=== PATIENT | male | born 1995 | race Caucasian/White ===

== ENCOUNTER 2018-11-30 12:09 | Emergency (ER) | payer BC ==
[2018-11-30] MEDS ORDERED: TRAMADOL HCL 50 MG TAB ONE (13:26)
[2018-11-30 13:32] LABS: Urine Blood NEGATIVE (NEG); Urine Glucose NEGATIVE (NEG); Urine Protein NEGATIVE (NEG); Urine Specific Gravity 1.005 (1.005-1.030); Urine pH 6.5 (5.0-7.0)
--- NOTE | 2018-11-30 14:13 | EDPHYS ---
Physician Documentation [facility] Name: Ishaan Carreon Age: 23 yrs Sex: Male : 1995 Arrival Date: 11/30/2018 Time: 12:13 Bed 20 Private MD: None, None ED Physician Benito Weiss HPI: 11/30 13:10 This 23 yrs old Male presents to ER via Ambulatory with complaints of kdr Testicular Swelling. 13:10 The patient presents with scrotal pain, of both sides, in the area of the epidydimis, kdr with swelling, without erythema. Onset: The symptoms/episode began/occurred 2 day(s) ago, He has had intermittent ongoing pain for several months and was previously diagnosed with a hydrocele but that pain has largely resolved until the last few days. Modifying factors: The symptoms are alleviated by remaining still, the symptoms are aggravated by movement, pressure, urinating. Associated signs and symptoms: The patient has no apparent associated signs or symptoms. Severity of symptoms: At their worst the symptoms were mild, moderate, just prior to arrival, in the emergency department the symptoms are unchanged. The patient has experienced similar episodes in the past, a few times. The patient has not recently seen a physician. Historical: - Allergies: 12:48 No Known Allergies; ph - Home Meds: 12:48 None [Active]; ph - PMHx: 12:48 None; ph - Immunization history:: Adult Immunizations unknown. - Social history:: Smoking status: Patient/guardian denies using tobacco. - Ebola Screening: : No symptoms or risks identified at this time. ROS: 13:10 Constitutional: Negative for fever, chills, and weight loss, Eyes: Negative for injury, kdr pain, redness, and discharge. 13:10 Abdomen/GI: Negative for abdominal pain, nausea, vomiting, and diarrhea, abdominal cramps, abdominal distension, black/tarry stool, rectal pain, rectal bleeding, bowel incontinence. 13:10 : Positive for urinary symptoms, burning with urination, testicular pain Exam: 13:10 Constitutional: This is a well developed, well nourished patient who is awake, alert, kdr and in no acute distress. Head/Face: Normocephalic, atraumatic. 13:10 Abdomen/GI: Inspection: abdomen appears normal, Bowel sounds: normal, Palpation: abdomen is soft and non-tender. 13:10 : CVA tenderness, is absent, Male external genitalia: Circumcision noted. swelling: scrotal, testicle, is noted in the right inguinal area, is noted in the left inguinal area, of the epididymis area, tenderness. Vital Signs: 12:48 BP 153 / 88; Pulse 69; Resp 18; Temp 97.8; Pulse Ox 100% on R/A; Weight 61.23 kg; ph Height 5 ft. 6 in. (167.64 cm); Pain 7/10; 14:37 BP 139 / 82; Pulse 71; Resp 14; Pulse Ox 100% ; bp 12:48 Body Mass Index 21.79 (61.23 kg, 167.64 cm) ph MDM: 13:10 Data reviewed: vital signs, nurses notes, lab test result(s), radiologic studies. kdr Counseling: I had a detailed discussion with the patient and/or guardian regarding: the historical points, exam findings, and any diagnostic results supporting the discharge/admit diagnosis, lab results, radiology results, the need for outpatient follow up. 14:12 Patient medically screened. kdr 11/30 13:09 Order name: Urine Culture kdr 11/30 13:27 Order name: Urine Dipstick--Ancillary (enter results); Complete Time: 14:09 eb 11/30 13:09 Order name: Urine Dipstick-Ancillary (obtain specimen); Complete Time: 13:54 kdr 11/30 13:09 Order name: US Scrotum Testicles kdr Administered Medications: 13:18 Drug: traMADol 100 mg Route: PO; bp 14:32 Follow up: Response: Anxiety decreased bp 14:15 Drug: Cipro 500 mg Route: PO; bp 14:36 Follow up: Response: Medication administered at discharge. bp Disposition: 11/30/18 14:12 Discharged to Home. Impression: Hydrocele, unspecified, Varicocele. - Condition is Stable. - Discharge Instructions: Varicocele, Hydrocele, Adult, Testicular Self-Exam, [id number]. - Prescriptions for Tramadol 50 mg Oral Tablet - take 1 tablet by ORAL route every 8 hours as needed; 16 tablet. Cipro 500 mg Oral Tablet - take 1 tablet by ORAL route every 12 hours for 7 days; 14 tablet. - Medication Reconciliation Form, Thank You Letter, Antibiotic Education, Prescription Opioid Use form. - Follow up: Private Physician; When: 2 - 3 days; Reason: If symptoms return, Further diagnostic work-up, Recheck today's complaints, Continuance of care, Re-evaluation by your physician. - Problem is an acute exacerbation. - Symptoms have improved. Signatures: Dispatcher [employer] EDMS Benito Weiss MD MD kdr Luciana Butcher RN RN Brandyn Benitez RN RN bp Corrections: (The following items were deleted from the chart) 14:40 14:12 11/30/2018 14:12 Discharged to Home. Impression: Hydrocele, unspecified; bp Varicocele. Condition is Stable. Prescriptions for Tramadol 50 mg Oral Tablet - take 1 tablet by ORAL route every 8 hours as needed; 12 tablet. and Forms are Medication Reconciliation Form, Thank You Letter, Antibiotic Education, Prescription Opioid Use. Follow up: Private Physician; When: 2 - 3 days; Reason: If symptoms return, Further diagnostic work-up, Recheck today's complaints, Continuance of care, Re-evaluation by your physician. Problem is an acute exacerbation. Symptoms have improved. kdr
--- NOTE | 2018-11-30 14:13 | ER ---
Nurse's Notes [facility] Name: Ishaan Carreon Age: 23 yrs Sex: Male : 1995 Arrival Date: 11/30/2018 Time: 12:13 Bed 20 Private MD: None, None Diagnosis: Hydrocele, unspecified;Varicocele Presentation: 11/30 12:46 Presenting complaint: Patient states: R sided testicular swelling today, pain in jose ph testicles and frequent urination, denies burning w/ urination, abdominal pain, or fever, reports being dx w/ R sided hydrocele 2 months ago. Transition of care: patient was not received from another setting of care. Onset of symptoms was November 30, 2018. Risk Assessment: Do you want to hurt yourself or someone else? Patient reports no desire to harm self or others. Initial Sepsis Screen: Does the patient meet any 2 criteria? No. Patient's initial sepsis screen is negative. Care prior to arrival: Medication(s) given: Motrin, at 0800. 12:46 Method Of Arrival: Ambulatory ph 12:46 Acuity: JIE 3 ph 12:48 Initial Sepsis Screen: Does the patient have a suspected source of infection? No. bp Patient's initial sepsis screen is negative. Historical: - Allergies: 12:48 No Known Allergies; ph - Home Meds: 12:48 None [Active]; ph - PMHx: 12:48 None; ph - Immunization history:: Adult Immunizations unknown. - Social history:: Smoking status: Patient/guardian denies using tobacco. - Ebola Screening: : No symptoms or risks identified at this time. Screenin:12 Abuse screen: Denies threats or abuse. Denies injuries from another. Nutritional bp screening: No deficits noted. Tuberculosis screening: No symptoms or risk factors identified. Fall Risk None identified. Assessment: 13:09 General: Appears in no apparent distress. comfortable, Behavior is calm, cooperative, bp appropriate for age. Pain: Complains of pain in groin. Neuro: Level of Consciousness is awake, alert, obeys commands, Oriented to person, place, time, situation, Appropriate for age. Cardiovascular: No deficits noted. Respiratory: No deficits noted. GI: No signs and/or symptoms were reported involving the gastrointestinal system. : Reports Scrotal pain: sudden onset urinary frequency. EENT: No deficits noted. Derm: No deficits noted. Musculoskeletal: Circulation, motion, and sensation intact. Range of motion: intact in all extremities. Vital Signs: 12:48 BP 153 / 88; Pulse 69; Resp 18; Temp 97.8; Pulse Ox 100% on R/A; Weight 61.23 kg; ph Height 5 ft. 6 in. (167.64 cm); Pain 7/10; 14:37 BP 139 / 82; Pulse 71; Resp 14; Pulse Ox 100% ; bp 12:48 Body Mass Index 21.79 (61.23 kg, 167.64 cm) ph ED Course: 12:13 Patient arrived in ED. mr 12:13 None, None is Private Physician. mr 12:32 Benito Weiss MD is Attending Physician. kdr 12:43 Brandyn Benitez, RN is Primary Nurse. bp 12:48 Triage completed. ph 12:48 Arm band placed on Patient placed in an exam room, on a stretcher. ph 13:12 Patient has correct armband on for positive identification. Bed in low position. Call bp light in reach. Side rails up X2. 13:24 Patient taken to ultrasound. via wheelchair. lc3 13:29 Ultrasound completed. Patient moved back from ultrasound. lc3 13:43 US Scrotum Testicles In Process Unspecified. EDMS 14:38 No provider procedures requiring assistance completed. Patient did not have IV access bp during this emergency room visit. Administered Medications: 13:18 Drug: traMADol 100 mg Route: PO; bp 14:32 Follow up: Response: Anxiety decreased bp 14:15 Drug: Cipro 500 mg Route: PO; bp 14:36 Follow up: Response: Medication administered at discharge. bp Outcome: 14:12 Discharge ordered by . kdr 14:39 Discharged to home ambulatory. bp 14:39 Condition: stable 14:39 Discharge instructions given to patient, Instructed on discharge instructions, follow up and referral plans. medication usage, Demonstrated understanding of instructions, follow-up care, medications, Prescriptions given X 2. 14:40 Patient left the ED. bp Signatures: Dispatcher [employer] EDMS Benito Weiss MD MD kdr Jorge Hope woodward Luciana Butcher RN RN Onelia Patel lc3 Brandyn Benitez, RADHA RN bp
[2018-11-30] MEDS ORDERED: CIPROFLOXACIN HCL 500 MG TAB ONE (14:44)
--- NOTE | 2018-11-30 15:11 | RAD REPORT ---
EXAM DESCRIPTION: US - Scrotum Testicles - 11/30/2018 2:36 pm CLINICAL HISTORY: Bilateral testicular pain Preliminary findings provided at the time of the study. COMPARISON: None. FINDINGS: Testicular tissue is homogeneous with no focal mass. Doppler evaluation shows normal intra testicular blood flow. A minimal 4 mm left epididymal cyst is present. Patient has a small to moderat e size left varicocele. Trace left hydrocele as well. No epididymal enlargement or hyperemia. IMPRESSION: No acute or significant testicle or epididymis abnormality. Small to moderate left varicocele.
== END 2018-11-30 14:40 | disposition home or self-care (01) ==
LOC: ER 12:09
DX: N43.3 Hydrocele, unspecified (principal); I86.1 Scrotal varices
CPT/HCPCS: 76870; 81003; 87086; 87088; 99284